=== PATIENT | female | born 1930 | race Caucasian/White ===

== ENCOUNTER 2018-10-23 07:15 | Emergency (ER) | payer MEDICARE ==
[2018-10-23] MEDS ORDERED: APRESOLINE 20 MG/ML INJ IV ONE (07:53)
[2018-10-23] MEDS ORDERED: APRESOLINE 20 MG/ML INJ ONE (08:34)
--- NOTE | 2018-10-23 08:38 | XRAY ---
Indication: Pain following fall. Multiple contiguous axial images obtained through the cervical spine. Sagittal and coronal reformatted images obtained. Comparison: None Age-related osteopenia. Axial images negative for acute fracture, suspicious bony lesions, or spinal canal stenosis. Mild multilevel degenerative endplate spurring and bilateral degenerative facet hypertrophy. Sagittal and coronal reformatted images demonstrates cervical lordotic reversal, positional versus paraspinal spasm. C4-T1 disc space loss. No acute compression fracture, subluxation, or jumped facet. Normal appearing craniocervical junction. Visualized noncontrasted soft tissues demonstrates left carotid calcifications and heterogeneous thyroid gland. Ventricular shunt catheter traverses the right neck. CT head and CT thoracic spine reported separately. Impression: 1. Cervical lordotic reversal, positional versus paraspinal spasm. 2. Negative acute fracture/subluxation. 3. Osteopenia and multilevel degenerative spondylosis. CT DI 52.85
--- NOTE | 2018-10-23 08:39 | XRAY ---
Indication: Pain following fall. Multiple contiguous axial images obtained through the head without contrast. Comparison: None Age-appropriate global atrophy and moderate/advanced periventricular degenerative micro-ischemia bilaterally. Right-sided ventricular shunt catheter with the tip in the anterior interhemispheric fissure. Ventricular system is prominent. No acute intracranial hemorrhage, abnormal extra-axial fluid collection, or mass effect. Fourth ventricle is midline. Bony calvarium intact. Visualized paranasal sinuses and mastoid air cells are clear. Impression: 1. Nonacute senile brain with right-sided ventricular shunt catheter in situ. 2. Prominent ventricular system. Comparison studies would be of benefit. CT DI 51.07
--- NOTE | 2018-10-23 08:58 | XRAY ---
Indication: Pain following fall. Multiple contiguous axial images obtained through the thoracic spine. Sagittal and coronal reformatted images obtained. Comparison: None Age-related osteopenia. Axial images negative for acute fracture, suspicious bony lesions, or spinal canal stenosis. Old inferior T12 endplate fracture with 50% height loss. There is mild diffuse scattered dural calcifications. Findings could be due to hyperparathyroidism, renal failure, nephrogenic systemic fibrosis, previous hemorrhage, or iatrogenic. Sagittal and coronal reformatted images demonstrates normal thoracic alignment. Superior endplate of T7 appears concave either prominent Schmorl node versus old fracture. Smaller superior T10 Schmorl node. No acute compression fracture or subluxation. Visualized noncontrasted soft tissues demonstrates scattered arteriosclerotic calcifications and tiny left hilar calcified node. Tiny bilateral pleural effusions with dependent atelectasis. CT cervical and CT lumbar spine reported separately. Impression: 1. T7 superior endplate concave deformity either prominent Schmorl node versus old fracture. Small T10 Schmorl node and old T12 fracture. 2. Negative acute fracture/subluxation. 3. Diffuse scattered dural calcifications. Partial differential includes hyperparathyroidism, renal failure, nephrogenic systemic fibrosis, old hemorrhage, or iatrogenic. 4. Incidental osteopenia, tiny bilateral effusions/atelectasis, left hilar calcified node, and scattered vascular calcifications CT DI 99.98
--- NOTE | 2018-10-23 09:05 | XRAY ---
Indication: Pain following fall. Multiple contiguous axial images obtained through the lumbar spine. Sagittal and coronal reformatted images obtained. Comparison: None CT thoracic spine reported separately. Age-related osteopenia. Multilevel degenerative disc disease including L2-L4 degenerative vacuum disc phenomena L1 segment demonstrates compression fracture with approximately 50-75% height loss. L4-L5 spinal canal stenosis and foraminal stenosis, left greater than right due to combination of disc osteophyte complex and bilateral degenerative facet hypertrophy. Superior endplate of L1 demonstrates fracture lines anteriorly suggesting acute fracture. Old superior L5 endplate fracture with approximately 50% height loss. Mild scattered dural calcifications. Findings could be due to hyperparathyroidism, renal failure, nephrogenic systemic fibrosis, previous hemorrhage, or iatrogenic. Sagittal and coronal reformatted images demonstrates moderate dextrorotoscoliosis centered at L3. L2-L4 disc space loss. No subluxation. Visualized soft tissues demonstrates heavy scattered vascular calcifications. Impression: 1. L1 compression fracture, probable acute as detailed. Old L5 endplate fracture. 2. Scattered dural calcifications. Partial differential includes hyperparathyroidism, renal failure, nephrogenic systemic fibrosis, old hemorrhage, or iatrogenic. 3. Multilevel degenerative disc disease greatest at L4-L5. 4. Incidental osteopenia, dextrorotoscoliosis, and scattered vascular calcifications CT DI 63.34
--- NOTE | 2018-10-23 09:29 | ERPHSYRPT ---
- History of Present Illness Source: EMS, intermediate records Exam Limitations: clinical condition Patient Subjective Stated Complaint: EMS REPORTS THAT KAI TOLD THEM PATIENT HAD SLIPPED OUT OF BED THIS AM AND WAS FOUND ON THE FLOOR. EMS STATES THAT PATIENT HAS SEVERE DEMENTIA AND IS A POOR HISTORIAN. THEY STATE PATIENT C/ O PAIN WHENEVER THEY MOVE OR TOUCH HER. PATIENT STATES "OH MY BACK, MY POOR BACK." Triage Nursing Assessment: TO ROOM PER EMS COT. SKIN W/D, COLOR PALE, RESP NONLABORED. PATIENT UNABLE TO ANSWER QUESTIONS BUT YELLS OUT AND MOANS WHENEVER SHE IS TOUCHED. NO SHORTENING OR ROTATION OF LEGS NOTED AT THIS TIME. Physician History: Pt is [facility] pt, that slipped out of bed and was found on the floor. Pt has h/o dementia, and chronic back pain. Secondary to that she was brought to the ED for evaluation. Pt with severe dementia, and could not give me ROS. Occurred: just prior to arrival Reason for Fall: unknown Injuries/Pain Location: back Loss of Consciousness: no loss of consciousness Severity of Pain-Max: moderate Severity of Pain-Current: moderate Modifying Factors: Improves With: nothing Allergies/Adverse Reactions: No Known Drug Allergies Allergy (Unverified 10/23/18 07:35) Home Medications: Acetaminophen 500 mg [Tylenol Extra Strength 500 mg] 1,000 mg PO DAILY [History] PANTOPRAZOLE 40 mg Tablet [Protonix 40MG Tablet] 40 mg PO QAM 10/23/18 [ History] Quetiapine Fumarate [Seroquel] 12.5 mg PO HS 10/23/18 [History] Sertraline HCl [Zoloft] 25 mg PO DAILY 10/23/18 [History] Verapamil HCl Sr 240 mg [Isoptin S.r. 240 mg] 240 mg PO DAILY 10/23/18 [ History] Hx Tetanus, Diphtheria Vaccination/Date Given: No Hx Influenza Vaccination/Date Given: Yes Hx Pneumococcal Vaccination/Date Given: Yes - Review of Systems Constitutional: Other (Could not get ROS, secondary to pt's condition.) - Past Medical History Pertinent Past Medical History: Yes Neurological History: Alzheimer's Disease, Dementia Cardiac History: Hypertension GI Medical History: GERD - Past Surgical History Past Surgical History: Yes Musculoskeletal: Joint Replacement Female Surgical History: Hysterectomy Other Surgical History: RIGHT KNEE REPLACEMENT, 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 - Social History Smoking Status: Never smoker Exposure to second hand smoke: No Drug Use: none, narcotics Patient Lives Alone: No - Nursing Vital Signs Nursing Vital Signs: Initial Vital Signs Temperature 96.8 F 10/23/18 07:16 Pulse Rate 65 10/23/18 07:16 Respiratory Rate 18 10/23/18 07:16 Blood Pressure 216/97 10/23/18 07:16 O2 Sat by Pulse Oximetry 98 10/23/18 07:16 Pain Scale Pain Intensity 6 - [place] Coma Score Best Eye Response ([place]): (4) open spontaneously Best Verbal Response ([place]): (4) confused conversation Best Motor Response ([place]): (5) localizes to pain [place] Total: 13 - Physical Exam General Appearance: moderate distress Head Injury: no evidence of injury Eye Exam: PERRL/EOMI ENT Exam: airway nml Neck Exam: normal inspection, No tenderness Respiratory/Chest Exam: normal breath sounds, No chest tenderness, No respiratory distress Cardiovascular Exam: normal heart sounds, regular rate/rhythm Gastrointestinal Exam: soft, No tenderness, No distention, No guarding, No ecchymosis Back Exam: vertebral tenderness, muscle spasm Extremity Exam: other (Arthritis at the hands. No edema) Neurologic Exam: alert, other (Severe dementia) SpO2: 100 Ordered Tests: Active Orders 24 hr Category Date Time Status CERVICAL SPINE WO CONTRAST [CT] Stat Exams 10/23/18 07:32 Completed HEAD WITHOUT CONTRAST [CT] Stat Exams 10/23/18 07:32 Completed LUMBAR SPINE W/O [CT] Stat Exams 10/23/18 07:32 Completed THORACIC SPINE W/O CONTRAST [CT] Stat Exams 10/23/18 07:32 Completed CULTURE,URINE Stat Lab 10/23/18 07:30 Ordered Medication Summary Discontinued Medications Generic Name Dose Route Start Last Admin Trade Name Freq PRN Reason Stop Dose Admin Hydralazine HCl 20 mg 10/23/18 07:53 10/23/18 08:35 Apresoline 20 Mg/Ml Inj IV 10/23/18 07:54 20 mg STAT ONE Administration Hydralazine HCl Confirm 10/23/18 08:34 Apresoline 20 Mg/Ml Inj Administered 10/23/18 08:35 Dose 20 mg .ROUTE .STK-MED ONE - Progress Progress: unchanged Progress Note: 10/23/18 09:33 Pt is ECF pt that fell today in facillity. CTs of head to lumbar spine were done, and showed new acute L1 compression fracture. I explained to pt's daughters the diagnosis. They would like pt to get Tylenol and Lidocaine patch , only, to avoid confusion and falls with controlled meds. A prescription for Lidocaine patch will be given. Will see patient in: office Counseled pt/family regarding: need for follow-up - Departure Departure Disposition: Extended Care Facility Clinical Impression: Compression fracture of L1 vertebra Condition: Stable Critical Care Time: No Referrals: ROSA BASILIO [Primary Care Provider] - Additional Instructions: use Lidocaine to apply on painful area. Tylenol can be given as needed. Pt should f/u with her PCP.
[2018-10-23 10:09] VITALS: BP 154/103; PULSE 69; O2SAT 96
== END 2018-10-23 10:20 ==
LOC: ED 07:15
DX: G30.0 Alzheimer's disease with early onset (principal); F02.80 Dementia in other diseases classified elsewhere, unspecified severity, without behavioral disturbance, psychotic disturbance, mood disturbance, and anxiety; I10 Essential (primary) hypertension; K21.9 Gastro-esophageal reflux disease without esophagitis; M54.9 Dorsalgia, unspecified; G89.29 Other chronic pain; W01.10XA Fall on same level from slipping, tripping and stumbling with subsequent striking against unspecified object, initial encounter; Y92.122 Bedroom in nursing home as the place of occurrence of the external cause
CPT/HCPCS: 70450; 72125; 72128; 72131; 96374; 99284; J0360